=== PATIENT | male | born 1960 | race Caucasian/White ===

== ENCOUNTER 2018-01-10 05:28 | Emergency (ER) | payer SELFPAY ==
[~2018-01-10] VITALS: Ht 172.7 cm; Wt 99.8 kg
[2018-01-10 05:33] VITALS: BP 166/91
[2018-01-10] MEDS ORDERED: Ketorolac 30mg Inj IM ONE (06:15)
--- NOTE | 2018-01-10 06:25 | Emergency Room Report ---
History of Present Illness General Chief Complaint: Pain Source: Patient Present Illness HPI Patient presents in emergency department today complaining of right hand pain. Patient states that he works as a recycler forklift driver truck driver and [place] He has been lifting a lot of luggage. The pain is concentrated in his right wrist. He denies any other injuries. States that so painful it's difficult to move his wrist. He denies any fever nausea vomiting diarrhea chills. No other trauma was noted. No other complaints are noted. Symptoms noted to be moderate to severe. Patient states that the pain started early this morning.No other modifying factors. No other associated signs and symptoms. No other complaints were noted. Allergies: Coded Allergies: No Known Allergies (Unverified , 01/10/18) Patient History Past Medical History: none Pertinent Family History: none Social History: Denies: smoking, alcohol use, drug use Reviewed Nursing Documentation: PMH: Agreed; PSxH: Agreed Nursing Documentation-PMH Hx Cardiac Problems: No Hx Diabetes: No Review of Systems All Other Systems: negative except mentioned in HPI Physical Exam Vital Signs Date Time Temp Pulse Resp B/P (MAP) Pulse Ox O2 Delivery O2 Flow Rate FiO2 01/10/18 05:33 97.9 68 20 166/91 97 Room Air 97.9 Sp02 EP Interpretation: reviewed, normal General Appearance: alert, mild distress Head: atraumatic ENT: normal ENT inspection, hearing grossly normal, normal voice Neck: supple Respiratory: no respiratory distress Cardiovascular #1: no edema Musculoskeletal: decreased range of motion - Right wrist, swelling - Right wrist, tender - Right wrist Neurologic: normal inspection, alert, responsive, speech normal Psychiatric: normal inspection, judgement/insight normal, mood/affect normal Skin: normal inspection, normal color, no rash Procedures Splinting Splinting : Consent: Verbal Location: Right wrist Pre-Made Type: velcro Splint: thumb spica Pre-Proc Neuro Vasc Exam: normal Post-Proc Neuro Vasc Exam: normal Patient Tolerated: Well Complications: None Medical Decision Making Diagnostic Impression: Primary Impression: Strain of wrist, right Additional Impression: Gout attack ER Course Patient presents emergency department today complaining of right wrist pain. Differential considerations include fracture dislocation versus strain. Given patient's presentation and swelling I felt the patient require x-rays well fracture. X-rays were noted to be negative. Given patient's history I felt that this is consistent with either a gouty flare or a wrist strain. Patient was placed into a wrist splint. Patient was given a dose of Percocet and Toradol and felt better. Patient was advised not to drive if he was taking pain medications. Patient voiced understanding.Patient is advised to follow up with primary doctor in 2-3 days and return the emergency room for any worsening symptoms and as needed. Other X-Ray Diagnostic Results Other X-Ray Diagnostic Results : X-Ray ordered: Right wrist # of Views/Limited Vs Complete: 3 View Indication: Pain EP Interpretation: Yes Interpretation: no dislocation, no soft tissue swelling, no fractures Impression: No acute disease Electronically Signed by: Electronically signed by Rey Cortez MD Last Vital Signs Date Time Temp Pulse Resp B/P (MAP) Pulse Ox O2 Delivery O2 Flow Rate FiO2 01/10/18 06:14 97.9 01/10/18 05:33 68 20 166/91 97 Room Air Status: improved Disposition: HOME, SELF-CARE Condition: Stable Scripts Indomethacin (Indomethacin) 50 Mg Capsule 25 MG ORAL Q8H, #15 CAP 0 Refills Prov: Rey Cortez MD 01/10/18 Hydrocodone Bit/Acetaminophen 5-325* (NORCO 5-325*) 1 Each Tablet 1 TAB ORAL Q6H PRN for For Pain, #20 TAB 0 Refills Prov: Rey Cortez MD 01/10/18 Referrals: NOT CHOSEN [facility]/,REFERRING (PCP) Rey Cortez MD Jan 10, 2018 06:24
[2018-01-10] MEDS ORDERED: NORCO 5-325 TA1 EACH ORAL (07:00)
[2018-01-10] MEDS ORDERED: IBUPROFEN600 MG ORAL (07:00)
[2018-01-10] MEDS ORDERED: INDOCIN25 MG ORAL (07:04)
[2018-01-10] MEDS ORDERED: oxyCODONE HCL/Acetaminophen 5/325mg ORAL ONE (07:15)
[2018-01-10 07:29] VITALS: BP 144/71
--- NOTE | 2018-01-11 13:34 | Diagnostic Imaging Report ---
Indication: Pain Technique: XRAY Hand Complete R Comparison: None Findings: No evidence of acute fracture or dislocation. Alignment and joint spaces appear preserved. No radiopaque foreign body identified. Impression: No acute fracture or dislocation.
== END 2018-01-10 07:30 | disposition home or self-care (01) ==
LOC: EMR 06:08
DX: S66.911A Strain of unspecified muscle, fascia and tendon at wrist and hand level, right hand, initial encounter (principal); X50.0XXA Overexertion from strenuous movement or load, initial encounter; Y92.9 Unspecified place or not applicable; M10.9 Gout, unspecified
CPT/HCPCS: 29280; 73130; 96372; 99284; J1885